=== PATIENT | female | born 1985 ===

== ENCOUNTER 2021-07-14 11:06 | Emergency (ER) | payer OTHER ==
[~2021-07-14] VITALS: Ht 154.9 cm; Wt 69.4 kg
[2021-07-14 11:19] VITALS: BP 123/68
== END 2021-07-14 11:37 | disposition left against medical advice (07) ==
LOC: ER 11:06
DX: M54.50 Low back pain, unspecified (principal); Z53.21 Procedure and treatment not carried out due to patient leaving prior to being seen by health care provider; W19.XXXA Unspecified fall, initial encounter; Y93.89 Activity, other specified; Y92.89 Other specified places as the place of occurrence of the external cause; Y99.8 Other external cause status